=== PATIENT | male | born 1945 | race Caucasian/White ===

== ENCOUNTER → 2018-10-15 | Outpatient (CLI) | payer MEDICARE, BC ==
[~2018-10-15] MED LIST: ACE325 PO; ATOR20TA65 PO; AZIT-1 PO; CHOL10005 PO; DUTA0.5C14 PO; ENOX100D5 SQ; FLU45SYR17 IM; GUALA600 PO; IBUP-1618 PO; LEVO50TA86 PO; LOR75 PO; MULT-1335 PO; NYST15PO4 TP; OMEG500C7 PO; OXYGEN INH; PNEI IJ; PNEU0.5D3 IM; PRA20 PO; PRADAXA PO; RIVA20TA PO; SAW/1TAB2 PO; SILD100T59 PO; TAMS0.4C70 PO; WARF-1 PO; WARF4TAB15 PO
--- NOTE | 2018-10-15 10:51 | EKG ---
FACILITY: [facility] - [place] PATIENT NAME: AR DAVIES : [id number] MR: [id number]: [id number] EXAM DATE: ORDERING PHYSICIAN: JAMIN TREVINO TECHNOLOGIST: JACKSON Test Reason : PRE OP CLEARANCE Blood Pressure : / mmHG Vent. Rate : 055 BPM Atrial Rate : 055 BPM P-R Int : 188 ms QRS Dur : 144 ms QT Int : 444 ms P-R-T Axes : 041 059 011 degrees QTc Int : 424 ms Sinus bradycardia Right bundle branch block Abnormal ECG No previous ECGs available Referred By: BELINDA Confirmed By:
== END ==
LOC: RESP 10:39
PROVIDERS: ATTEND Internal Medicine
DX: Z02.9 Encounter for administrative examinations, unspecified (principal)

== ENCOUNTER 2018-11-14 01:08 | Day surgery (SDC) | payer MEDICARE, BC ==
[~2018-11-14] VITALS: Ht 175.3 cm; Wt 89.4 kg
[~2018-11-14 01:08] MED LIST changes: +TAMS0.4C25 PO
[2018-11-14] MEDS ORDERED: NORMOSOL R SOLN(*) 1000 ML BAG 1,000 ML IV PRN (09:15)
[2018-11-14] MEDS ORDERED: LIDOCAINE/SOD BICARB 8.4% SYR ID ONE (09:15)
[2018-11-14] MEDS ORDERED: PROPOFOL EMUL(*) 10MG/ML 20 ML 40 ML ONE (10:11)
[2018-11-14] MEDS ORDERED: LIDOCAINE MPF 1% 5 ML VIAL ONE (10:11)
[2018-11-14 10:19] VITALS: BP 131/90
[2018-11-14 11:24] VITALS: BP 131/84
--- NOTE | 2018-11-14 11:36 | Short(Outpt) Discharge Summary ---
Discharge Summary Reason for Hosp/Final Diag: (1) Colon cancer screening Status: Chronic Hospital Course & Plan: Colonoscopy with polypectomy x1 completed without problems. (2) Hemorrhoids Status: Chronic Hospital Course & Plan: Internal hemorrhoid banding x1 completed without problems. Departure Discharge to: Home, Self Care Discharge Instructions Home Meds Active Scripts Dutasteride (AVODART) 0.5 Mg Capsule, 0.5 MG PO QDAY, #30 CAPSULE 0 Refills Patient needs to update lab work before more RFs can be sent Prov:JAMIN TREVINO MD 10/23/18 Rivaroxaban 20 Mg (XARELTO 20 MG) 20 Mg Tablet, 20 MG PO QDAY, #30 TAB 0 Refills Patient needs to complete lab work before more RFs can be sent Prov:JAMIN TREVINO MD 10/23/18 Levothyroxine Sodium (LEVOTHYROXINE SODIUM) 50 Mcg Tablet, 50 MCG PO QDAY, #30 TAB 0 Refills Patient needs to complete lab work before more RFs can be sent Prov:JAMIN TREVINO MD 10/23/18 Tamsulosin Hcl (FLOMAX) 0.4 Mg Cap.er.24h, 0.4 MG PO HS, #30 CAP Patient needs to complete lab work before RFs can be sent Prov:JAMIN TREVINO MD 10/23/18 Reported Medications Atorvastatin Calcium (ATORVASTATIN CALCIUM) 20 Mg Tablet, 1 TAB PO QDAY, TAB 11/06/18 Saw/Vit E/Sod Leidy/Lyc/Beta/Pyg (Prostate Health Caplet) 1 Each Tablet, 1 TAB PO QDAY 06/09/15 Cholecalciferol (Vitamin D3) (VITAMIN D3) 1,000 Unit Tablet, 1 TAB PO QDAY 06/09/15 Diet: Regular Activity: As Tolerated Special Instructions: Your colonoscopy was completed without problems and your prep was excellent (Good Job!!). I removed 2 small polyps from your colon and rectum and they were sent to pathology. My office will call you in the next week or two to let you know what the polyps are and when your next colonoscopy should be (either 5 or 10 years) depending on pathology results. Your internal hemorrhoids were not very bad today. I rubber band ligated 1 internal hemorrhoid. Problem Qualifiers (1) Hemorrhoids: Hemorrhoid type: first degree Qualified Codes: K64.0 - First degree hemorrhoids ALICIA NORRIS MD Nov 14, 2018 11:36
[2018-11-14 11:56] VITALS: BP 124/72
[2018-11-14 12:04] VITALS: BP 119/83
[2018-11-14 12:05] VITALS: BP 119/77
--- NOTE | 2018-11-14 12:12 | NUR ---
pt instructed to re start Xarelto Monday per dr dumas. pt states understanding
== END 2018-11-14 12:17 | disposition home or self-care (01) ==
LOC: OR 01:08
PROVIDERS: ATTEND Surgery
DX: D12.4 Benign neoplasm of descending colon (principal); K62.1 Rectal polyp; K57.30 Diverticulosis of large intestine without perforation or abscess without bleeding
CPT/HCPCS: 00811; 45384; 45385; 88305; J2001; J2704